=== PATIENT | female | born 1970 | race African-American/Black ===

== ENCOUNTER 2016-07-28 14:34 | Emergency (ER) | payer MEDICARE, OTHER ==
[~2016-07-28] VITALS: Ht 157.5 cm; Wt 80.0 kg
[~2016-07-28 14:34] MED LIST: IBUP800T25 PO; SSD1C20 TOP
[2016-07-28 14:42] VITALS: Ht 157.5 cm; Wt 80.0 kg
[2016-07-28] MEDS ORDERED: CYCL-319 PO (15:36)
[2016-07-28] MEDS ORDERED: NAPR-688 PO (15:36)
--- NOTE | 2016-07-28 15:43 | ERD ---
ER Documentation Chief Complaint Date/Time DATE: 07/28/16 TIME: 15:39 Chief Complaint riht leg pain, no trauma today HPI this is a 45-year-old female presenting to the emergency department complaining of right lateral buttock pain that radiates down to her toes that started this 4:00 this morning. Patient states the pain was severe at night but now it has subsided around 3 out of 10. Patient denies any back pain, fevers, trauma, swelling. She states that she took Tylenol at 11 AM with relief. ROS All systems reviewed and are negative except as per history of present illness. Medications Home Meds Active Scripts Cyclobenzaprine Hcl* (Cyclobenzaprine Hcl*) 10 Mg Tablet, 10 MG PO TID, #20 TAB Prov:MACRINA PEREZ PA-C 07/28/16 Naproxen* (Naproxen*) 500 Mg Tablet, 500 MG PO BID, #30 TAB Prov:MACRINA PEREZ PA-C 07/28/16 Silver Sulfadiazine (THERMAZENE 1% 25 GM) 1 Applic Cr, 1 APPLIC TOP BID for 7 Days, #1 TUB Prov:JES RAYO MD 10/10/15 Ibuprofen* (Motrin*) 800 Mg Tab, 800 MG PO Q6H Y for PAIN AND OR ELEVATED TEMP, #30 TAB Prov:JES RAYO MD 10/10/15 Allergies Allergies: Coded Allergies: No Known Allergy (Unverified , 07/28/16) PMhx/Soc History of Surgery: No Anesthesia Reaction: No Hx Neurological Disorder: No Hx Respiratory Disorders: No Hx Cardiac Disorders: No Hx Psychiatric Problems: Yes (ANXIETY ) Hx Miscellaneous Medical Probl: No Hx Alcohol Use: No Hx Substance Use: No Hx Tobacco Use: No Smoking Status: Never smoker Physical Exam Vitals Vital Signs Date Time Temp Pulse Resp B/P Pulse Ox O2 Delivery O2 Flow Rate FiO2 07/28/16 14:42 97.8 69 18 129/60 99 Physical Exam GENERAL: WD/WN, in no apparent distress, non-toxic appearing. obese HENT: NC/AT EYES: Conjunctiva normal NECK: Supple PULM: Normal labored breathing CV: Good capillary refill GI: Non-distended, no guarding BACK: no deformities noted, normal spinal curvature, NTTP on lumbar region, non- tender on spine midline, NTTP on extremities bilaterally EXT: No clubbing, cyanosis, or edema NEURO: Moves on all fours, sensation intact, normal gait SKIN: intact PSYCH: Normal mood Procedures/MDM This is a 45-year-old female presenting to the emergency department complaining of atraumatic right leg pain likely due to sciatica. I have a low suspicion for any fracture, dislocation, DVT. Patient appears well. She is neurovascular intact. Patient is suitable to follow-up with her primary care physician for further evaluation management. I have given her prescription for naproxen and Flexeril. Discussed return to the ER for any worsening signs or symptoms. She understands and agrees with this plan. Stable discharge to home Departure Diagnosis: Primary Impression: Right leg pain Condition: Stable Patient Instructions: Possible Causes of Low Back or Leg Pain, Understanding Sciatica, Leg Spasm Additional Instructions: FOLLOW UP WITH YOUR PRIMARY CARE PHYSICIAN TOMORROW.Return to this facility if you are not improving as expected. Take all medicines as directed. Return to this facility if you are not improving as expected. You have been given a medicine which may cause drowsiness.DO NOT DRIVE OR OPERATE DANGEROUS MACHINERY while taking this medicine! MACRINA PEREZ PA-C July 28, 2016 15:43
== END 2016-07-28 15:47 | disposition home or self-care (01) ==
LOC: FTE 14:34
DX: M79.604 Pain in right leg (principal)
CPT/HCPCS: 99283